=== PATIENT | male | born 1980 | race Caucasian/White ===

== ENCOUNTER 2023-04-02 08:00 | Emergency (ER) | payer OTHER, SELFPAY ==
[2023-04-02] MEDS ORDERED: Morphine 4 MG/ML VIAL ONE (08:33)
== END 2023-04-02 08:48 | disposition home or self-care (01) ==
LOC: BURERS 08:00
DX: M54.50 Low back pain, unspecified (principal); F17.210 Nicotine dependence, cigarettes, uncomplicated
CPT/HCPCS: 96372; 99283; J2270